=== PATIENT | male | born 1945 | race Caucasian/White ===

== ENCOUNTER → 2017-02-04 10:09 | Outpatient (CLI) | payer MEDICARE, OTHER | END | disposition home or self-care (01) | LOC: D.RT 10:00 | DX: J44.9 Chronic obstructive pulmonary disease, unspecified (principal) ==

== ENCOUNTER 2017-04-16 13:23 | Emergency (ER) | payer OTHER ==
[2017-04-16 14:38] LABS: ALBUMIN 3.7 g/dL (3.4-5.0); ALKALINE PHOSPHATASE 92 U/L (46-116); ALT (SGPT) 8 U/L (10-68); BILIRUBIN - TOTAL 0.32 mg/dL (0.2-1.3); CALC OSMOLALITY 279 mosm/kg (275-300); CALCIUM 8.7 mg/dL (8.5-10.1); CARBON DIOXIDE 30.7 mmol/L (21.0-32.0); CHLORIDE - SERUM 104 mmol/L (98-107); CREATININE - SERUM 1.1 mg/dL (0.6-1.3); GLUCOSE 94 mg/dL (74-106); POTASSIUM - SERUM 3.8 mmol/L (3.5-5.1); PROTEIN - SERUM 6.7 g/dL (6.4-8.2); SODIUM 140 mmol/L (136-145); UREA NITROGEN 15 mg/dL (7-18); eGFR NON AFRICAN AMERICAN 70 mL/min (90-120)
[2017-04-16 14:49] LABS: CHOL - HDL RATIO 3.1 ratio (2.3-4.9); CHOLESTEROL, TOTAL 147 mg/dL (0-200); CKMB 1.5 U/L (0.0-3.6); CREATINE KINASE 199 UL (21-232); HDL CHOLESTEROL 48 mg/dL (32-96); LDL CHOLESTEROL 77 mg/dL (0-100); LDL-HDL RATIO 1.6 ratio (1.5-3.5); TRIGLYCERIDE 111 mg/dL (30-200)
[2017-04-16 14:50] LABS: BASOPHILS 0.3 % (0-2); EOSINOPHILS 0.2 % (0-7); HEMATOCRIT 40.5 % (42.0-54.0); HEMOGLOBIN 13.8 g/dL (13.5-17.5); IMMATURE GRANULOCYTES 0.2 % (0-5); LYMPHOCYTES 41.4 % (15-50); MCH 32.2 pg (26.0-34.0); MCHC 34.1 g/dL (31.0-37.0); MCV 94.4 fL (80.0-100.0); MEAN PLATELET VOLUME 10.5 fL (7.4-10.4); MONOCYTES 13.4 % (2-11); NEUTROPHILS 44.5 % (40-80); PLATELET COUNT 176 10x3/uL (130-400); RBC 4.29 10x6/uL (4.20-6.10); RDW 13.8 % (11.5-14.5); WBC 6.4 10x3/uL (4.8-10.8)
[2017-04-16 14:57] LABS: TROPONIN-I < 0.017 ng/mL (0.000-0.060)
== END 2017-04-16 15:19 | disposition home or self-care (01) ==
LOC: D.ER 13:23
PROVIDERS: Emergency Medicine
DX: M25.512 Pain in left shoulder (principal); M54.2 Cervicalgia; I10 Essential (primary) hypertension; G20 Parkinson's disease; F17.200 Nicotine dependence, unspecified, uncomplicated

== ENCOUNTER 2017-06-10 15:47 | Inpatient (IN) | payer MEDICARE, OTHER ==
--- NOTE | ~2017-06-10 | HEMODYNAMI ---
PATIENT:NIKIA COVARRUBIAS MEDICAL RECORD: [id number] : 49 [facility] [id number] ADMISSION DATE: 06/10/17 Generatedon:06/11/201711:36 Patient name: NIKIA COVARRUBIAS Patient #: [id number] SSN: : 1945 Date of study: 06/11/2017 Page: Of Hemodynamic Procedure Report Patient Data Patient Demographics Procedure consent was obtained First Name: NIKIA Gender: Male Last Name: MARCI : 1945 [facility] Initial: JUAN RAMON Age: 71 year(s) Patient #: [id number] Race: Unknown Additional ID: [id number] Contact details Address: [address] [place] [address] State: [place] City: [facility] Zip code: [address] Admission Admission Data Admission Date: 06/10/2017 Admission Time: 17:54 Room #: D.2121 Procedure Procedure Types Cath Procedure Diagnostic Procedure LHC LHC w/Coronaries PCI Procedure Coronary Stent Coronary Stent Initial Miscellaneous Procedures Moderate Sedation up to 15 minutes Procedure Description Procedure Date Procedure Date: 06/11/2017 Procedure Start Time: 11:18 Procedure End Time: 11:33 Procedure Staff Name Function Eligio Mcdonald MD Performing Physician Helena Lr RT Monitor Marian Foster RT Scrub Krunal Martel RN Nurse Procedure Data Cath Procedure Fluoroscopy Diagnostic fluoroscopy Total fluoroscopy Time: 2.9 time: 2.9 min min Diagnostic fluoroscopy Total fluoroscopy dose: dose: 1026 mGy 1026 mGy Contrast Material Contrast Material Type Amount (ml) Isovue 300 95 Entry Location Entry Primary Successful Side Size Upsize Upsize Entry Closure Reid ccessful Closure Location (Fr) 1 (Fr) 2 (Fr) Remarks Device Remarks Radial Right 6 Fr Mechanical artery Short Compression Estimated blood loss: 10 ml Diagnostic catheters Device Type Used For End Catheter Placement DIAGNOSTIC Percy 110cm 5 Procedure Fr catheter ([id number]) Procedure Complications No complications Procedure Medications Medication Administration Route Dosage Oxygen NC 2 l/min Heparin Flush Bag added to field 2 bags (1000units/500ml NS) 0.9% NaCl I.V. 100 ml/hr Radial Cocktail added to field 1 syringe (Verapomil 2mg/Nitro 400mcg/Heparin 1500units) Fentanyl I.V. 50 mcg Versed I.V. 1 mg Radial Cocktail I.A. 1 syringe (Verapomil 2mg/Nitro 400mcg/Heparin 1500units) Heparin Bolus I.V. 4000 units Plavix P.O. 75 mg Hemodynamics Rest Heart Rate: 69 (bpm) Snapshots Pre Cath Intra NCS Post Cath Vital Signs Time Heart Resp SPO2 etCO2 NIBP (mmHg) Rhythm Pain Sedation Rate (ipm) (%) (mmHg) Status Level (bpm) 10:53:50 66 16 96 0 144/91(129) NSR 0 (11) 10(A) , No pain 10:58:02 60 16 96 0 147/90(124) NSR 0 (11) 10(A) , No pain 11:02:16 64 17 97 0 140/87(122) NSR 0 (11) 10(A) , No pain 11:06:24 61 16 97 0 130/82(112) NSR 0 (11) 10(A) , No pain 11:10:34 66 20 96 0 137/84(100) NSR 0 (11) 10(A) , No pain 11:14:47 61 16 97 0 124/79(94) NSR 0 (11) 10(A) , No pain 11:18:55 58 15 97 0 128/78(96) NSR 0 (11) 9(A) , No pain 11:22:59 73 15 90 0 115/77(86) NSR 0 (11) 9(A) , No pain 11:27:05 67 15 93 0 119/72(93) NSR 0 (11) 9(A) , No pain 11:31:40 62 16 94 0 143/91(110) NSR 0 (11) 9(A) , No pain Medications Time Medication Route Dose Verified Delivered Reason Note s Effectiveness by by 11:11:16 Oxygen NC 2 l/min Eligio Hector Per physician Tamara Martel RN 11:11:27 Heparin Flush added 2 bags Eligio Hector used for Bag to Tamara Martel senior vice president and chief information officer (1000units/500ml field NS) 11:11:36 0.9% NaCl I.V. 100 Eligio Hector Per physician ml/hr Tamara Martel RN 11:11:43 Radial Cocktail added 1 Eligio Hector used for (Verapomil to syringe Tamara Martel RN procedure 2mg/Nitro field 400mcg/Heparin 1500units) 11:13:56 Fentanyl I.V. 50 mcg Eligio Hector for sedation Tamara Martel RN 11:15:01 Versed I.V. 1 mg Eligio Hector for sedation Tamara Martel RN 11:19:29 Radial Cocktail I.A. 1 Eligio Eligio for (Verapomil syringe Tamara Mcdonald MD vasodilation 2mg/Nitro 400mcg/Heparin 1500units) 11:25:05 Heparin Bolus I.V. 4000 Eligio Hector for units Tamara Martel RN anticoagulation 11:33:09 Plavix P.O. 75 mg Eligio Hector for Tamara Martel RN antiplatelet therapy Procedure Log Time Note 10:33:10 Helena LAWRENCE(R) sent for patient. Start room use. 10:33:11 Time tracking: Regular hours 10:33:15 Plan of Care:Hemodynamics will remain stable., Cardiac rhythm will remain stable., Comfort level will be maintained., Respiratory function will remain adequate., Patient/ family verbilizes understanding of procedure., Procedure tolerated without complication., Recovers from procedure without complications.. 10:52:39 Patient received from Med II to [facility] 2 Alert and oriented. Tansferred to table in Supine position. 10:52:40 Warm blankets applied, and jojo hugger turned on for patient comfort. 10:52:41 Correct patient and procedure confirmed by team. 10:52:42 Signed procedure consent form obtained from patient. 10:52:43 ECG and BP/O2 sat monitors applied to patient. 10:52:44 Vital chart was started 10:52:45 Baseline sample Acquired. 10:52:48 Rhythm: sinus rhythm 10:52:50 Full Disclosure recording started 10:52:53 H&P Date Dictated: 06/11/2017 New H&P dictated by physician.. 10:52:55 Pre-procedure instructions explained to patient. 10:52:55 Pre-op teaching completed and patient verbalized understanding. 10:52:57 Family in waiting room. 10:52:58 Patient NPO since Midnight. 10:53:00 Is the patient allergic to Iodine/contrast media? No. 10:53:01 Was the patient premedicated? No 10:53:02 Is patient on blood thinner?No 10:53:07 Patient diabetic? No. 10:53:10 Previous problem with sedation/anesthesia? No ? 10:53:12 Snore? Yes 10:53:13 Sleep apnea? No 10:53:16 Deviated septum? No 10:53:17 Opens mouth fully? Yes 10:53:17 Sticks out tongue? Yes 10:53:24 Airway obstruction? Yes emphysema 10:53:35 Dentures? Yes Partials; in tight 10:53:38 Pre procedure: right dorsailis pedis pulse 1+ Palpable, but thready & weak; easily obliterated 10:53:40 Pre procedure: left dorsailis pedis pulse 1+ Palpable, but thready & weak; easily obliterated 10:53:42 Patient pain scale 0/10 ?. 10:53:48 IV patent on arrival in left forearm with 0.9% NaCl at [facility]. 10:53:51 Lab results completed and on chart. 10:53:54 Right Radial & Right Groin area was prepped with chlora-prep and draped in sterile fashion 10:53:55 Alarms reviewed by R. N. 10:53:55 Sharps counted by scrub and verified by R.N. 11:03:28 Physician paged 11:03:41 Use device set Radial Dx or PCI 11:03:43 ACIST Syringe (88458) opened to sterile field. 11:03:43 Medline Cath Pack ([id number]) opened to sterile field. 11:03:44 Bag Decanter (2001S) opened to sterile field. 11:03:44 SHEATH 6FR Slender ([id number]) opened to sterile field. 11:03:45 DIAGNOSTIC WIRE .035 260cm J wire (478900) opened to sterile field. 11:03:45 ACIST Hand Control (78377) opened to sterile field. 11:03:46 ACIST Manifold (40249) opened to sterile field. 11:03:46 Tegaderm 4 x 4 (1626W) opened to sterile field. 11:03:47 MBrace Wrist Support ([id number]) opened to sterile field. 11:06:03 Zero performed for pressure channel P1 11:07:04 Is patient on blood thinner?Yes 11:07:07 ACC The patient was administered the following blood thiners within the last 24 hours: ACCPlavix 11:11:16 Oxygen 2 l/min NC was administered by Krunal Martel RN; Per physician; 11:11:27 Heparin Flush Bag (1000units/500ml NS) 2 bags added to field was administered by Krunal Martel RN; used for procedure; 11:11:36 0.9% NaCl 100 ml/hr I.V. was administered by Krunal Martel RN; Per physician; 11:11:43 Radial Cocktail (Verapomil 2mg/Nitro 400mcg/Heparin 1500units) 1 syringe added to field was administered by Krunal Martel RN; used for procedure; 11:12:51 Physician arrived 11:13:51 --------ALL STOP TIME OUT------ 11:13:52 Final Timeout: patient, procedure, and site verified with staff and physician. All members of the team are in agreement. 11:13:56 Fentanyl 50 mcg I.V. was administered by Krunal Martel RN; for sedation; 11:15:01 Versed 1 mg I.V. was administered by Krunal Martel RN; for sedation; 11:17:54 Right Radial & Right Groin site verified by team. 11:17:58 Physical assessment completed. ASA score P 2 - A patient with mild systemic disease as per Eligio Mcdonald MD. 11:18:02 Sedation plan: IV Moderate Sedation Medication:Versed, Fentanyl 11:18:09 Procedure started. 11:18:58 Local anesthetic to right radial artery with Lidocaine 2% by Eligio Mcdonald MD.INITIAL ACCESS ONLY 11:19:08 A 6 Fr Short sheath was inserted into the Right Radial artery 11:19:29 Radial Cocktail (Verapomil 2mg/Nitro 400mcg/Heparin 1500units) 1 syringe I.A. was administered by Eligio Mcdonald MD; for vasodilation; 11:19:32 A DIAGNOSTIC Percy 110cm 5 Fr catheter (639123) was advanced over the wire and used for Procedure. 11:19:40 LV angiography performed. 11:20:03 EF : 60 % 11:20:50 RCA angiography performed. 11:21:21 Catheter removed. 11:22:59 GUIDE 6FR XBLAD 3.5 SH catheter ([id number]) opened to sterile field. 11:23:16 CHOICE PT Floppy Straight 300cm guide wire ([id number]) opened to sterile field. 11:23:17 INFLATOR Merit BasixCompak (KW2229) opened to sterile field. 11:25:05 Heparin Bolus 4000 units I.V. was administered by Krunal Martel RN; for anticoagulation; 11:26:11 6 Fr blad3.5 guide catheter was inserted over the wire 11::18 Whisper wire advanced. 11::19 Wire advanced across lesion. 11:27:35 Inflation Number: 1 A PROMUS Premier 3.0 x 38 stent ([id number]) was prepped and advanced across the Mid CX. The stent was deployed at 13 LILIAN for 0:10 (min:sec). 11:29:13 Wire removed. 11:29:14 Guide catheter removed. 11:29:30 Sheath removed intact; hemostasis achieved with Mechanical Compression to the Right Radial artery. 11:29:32 Procedure ended.(Physican Out) 11:30:54 Fluoroscopy time 02.90 minutes. 11:30:58 Fluoroscopy dose: 1026 mGy 11:30:58 Flurop Dose total: 1026 11:31:01 Contrast amount:Isovue 300 95ml. 11:31:03 Sharps counted by scrub and verified by R.N. 11:31:05 TR band inflated with 10cc of air. 11:31:07 Insertion/operative site no bleeding no hematoma. 11:31:08 Post Procedure Pulses reassessed and unchanged 11:31:13 Post-procedure physical assessment completed. ASA score P 2 - A patient with mild systemic disease as per Eligio Mcdonald MD. 11:31:17 Post procedure rhythm: sinus rhythm 11:31:20 Estimated blood loss: 10 ml 11:31:21 Post procedure instruction explained to patient.Patient verbalizes understanding. 11:31:46 Procedure type changed to Cath procedure, Diagnostic procedure, LHC, LHC w/Coronaries, PCI procedure, Coronary Stent, Coronary Stent Initial, Miscellaneous Procedures, Moderate Sedation up to 15 minutes 11:33:06 Procedure and supply charges have been captured, reviewed, submitted and are correct. 11:33:09 Plavix 75 mg P.O. was administered by Krunal Martel RN; for antiplatelet therapy; 11:33:32 Procedure Complication : No complications 11:33:34 Vital chart was stopped 11:33:36 See physician's report for complete and final results. 11:33:39 Report given to [facility]. 11:33:42 Patient transfered to [facility] with Stretcher. 11:33:44 Procedure ended. 11:33:44 Full Disclosure recording stopped 11:33:47 End room use (Document Last) Intervention Summary Intervention Notes Time ActionType Lesion and Equipment Action# Pressure Duration Attributes Used 11:27:35 Place stent Mid CX PROMUS 1 13 00:10 Premier 3.0 x 38 stent ([id number]) Device Usage Item Name Manufacture Quantity Catalog Number Hospital Part Current Min imal Lot# / Charge Number Stock Stock Serial# Code ACIST Acist 1 18068 235977 881818 865483 20 Syringe Medical (04975) Systems Inc Medline Cath Cardinal 1 [id number] 500092 25478 227575 5 Lenco Mobile ([id number]) Bag Decanter Microtek 1 2001S 556968 98648 705926 5 (2001S) Medical Inc. SHEATH 6FR Terumo 1 [id number] 075127 375480 484712 40 Slender ([id number]) DIAGNOSTIC [facility] 1 054343 258126 405951 884862 30 WIRE .035 260cm J wire (739640) ACIST Hand Acist 1 86879 890726 705287 116884 5 Control Medical (93224) Systems Inc ACIST Acist 1 63945 150808 322632 424891 5 Manifold Medical (58250) Systems Inc Tegaderm 4 x 3M 1 1626W 741292 770487 293062 5 4 (1626W) MBrace Wrist Advanced 1 140-0250-00 491009 67227 248321 5 Support Vascular ([id number]) Dynamics DIAGNOSTIC Terumo 1 40-9673 470325 807261 305873 5 Percy 110cm 5 Fr catheter (501516) GUIDE 6FR Cardinal 1 [id number] 423978 489099 317747 3 XBLAD 3.5 Health catheter ([id number]) CHOICE PT Eagle 1 [id number] 598430 300637 773421 5 Xtone Straight 300cm guide wire (03288232) INFLATOR Merit 1 SY3896 149901 287246 224622 15 [place] [employer] Medical BasixCompak (EI9319) PROMUS Eagle 1 [id number] 941160 117384 5 [id number] Premier 3.0 Scientific x 38 stent ([id number]) Signature Audit Remington Stage Time Signature Unsigned Intra-Procedure 06/11/2017 Helena Lr 11:35:58 AM RT(R) Signatures Monitor : Helena Lr Signature : RT Date : Time : [address] [place] [address]
--- NOTE | ~2017-06-10 | OP ---
PATIENT NAME: NIKIA COVARRUBIAS MEDICAL RECORD: [id number] :49 LOCATION:D.M2 D.2121 ADMISSION DATE:06/11/17 SURGEON: REGGIE HE MD DATE OF OPERATION: 06/12/2017 PROCEDURES: 1. PTCA and stent of RCA. 2. Intravascular ultrasound. 3. Selective coronary angiography. INDICATION: Angina and coronary artery disease. PROCEDURE IN DETAIL: After informed consent was obtained and after detailed explanation of risks, benefits as well as alternative therapies, the patient elected to proceed with angiogram and angioplasty. The right femoral area was prepped and draped in normal sterile fashion. The right femoral artery was cannulated via modified Seldinger technique with placement of 6-Angolan sheath. All catheters exchanged through this sheath. FINDINGS: The right coronary has a long area of 80% stenosis confirmed by intravascular ultrasound in the mid vessel. This was addressed with a 2.75 x 38 mm [place] stent taken to 17 atmospheres. Result was 0% residual stenosis. OVERALL IMPRESSION: Successful PTCA and stent of the RCA going from a long area of 80% initial stenosis to 0% residual stenosis. TRANSINT:[id number] Voice Confirmation ID: [id number] DOCUMENT ID: [id number] REGGIE HE MD at 1153 CC: [id number] DICTATION DATE: 06/12/17 1448 CHIEF COMMERCIAL OFFICER: 06/12/17 1601 DIS IN 06/12/17 [facility] [address] [id number]
--- NOTE | ~2017-06-10 | HP ---
PATIENT: NIKIA HENDRIX MEDICAL RECORD: [id number] ACCOUNT: [id number] LOCATION:[facility].2121 : 49 ADMISSION DATE: 06/11/17 HISTORY AND PHYSICAL EXAMINATION DIAGNOSES: 1. Non-Q-wave myocardial infarction. 2. Coronary artery disease. 3. Previous PTCA and stent. 4. Parkinson's. 5. Hyperlipidemia. 6. Hypertension. HISTORY OF PRESENT ILLNESS: Mr. Hendrix presents with anginal symptomatology. He is followed at the [facility]. He has a history of 5 stents, last being approximately 5 years ago. He has been having chest pain on and off for the past 2 weeks; however, he had prolonged episode of chest pain last night, unrelenting. Hence, he was not transferred to the [facility] because of continued chest pain, he continues to have chest tightness. This morning, his troponin is elevated. EKG is with no acute changes. PHYSICAL EXAMINATION: GENERAL APPEARANCE: Well-nourished, well-developed, appears stated age. Level of distress, comfortable. PSYCHIATRIC: Mental status, alert, normal affect. Orientation, oriented to time, place and person. EYES: Lids and conjunctiva, noninjected. No discharge, no pallor. ENT: Lips, teeth, gums, normal dentition. Oropharynx, no cyanosis, no pallor. NECK: Carotid arteries, bilateral normal upstroke, no bruits, no thrills. JUGULAR VEINS: No jugular venous pressure or distention. CERVICAL LYMPH NODES: Nontender, nonenlarged. THYROID: Not enlarged. Nontender. No nodules. LUNGS: Respiratory effort, unlabored. CHEST: Normal curvature. No thoracic deformity. No chest wall tenderness. Percussion, resonant. Auscultation, clear. No wheezes, no rales, no rhonchi. CARDIOVASCULAR: Precordial exam, nondisplaced. No heaves or pericardial thrills. Rate and rhythm, regular. Heart sounds, normal S1, normal S2. No S3, no gallop, no rub. Systolic murmur, not heard. Diastolic murmur, not heard. EXTREMITIES: No cyanosis, no edema. Peripheral pulses, full and equal in all extremities, except as noted. No bruits appreciated. ABDOMEN: Soft, nondistended. Normal aorta. No bruit. Nontender. No masses. Liver, nontender, no hepatomegaly. Spleen, nontender, no splenomegaly. MUSCULOSKELETAL: No joint tenderness. No joint swelling. No erythema. NEUROLOGICAL: Normal gait, normal strength, normal tone. SKIN: Warm and dry. OVERALL IMPRESSION: Non-Q-wave myocardial infarction with continued chest pain. We will proceed with coronary angiography. Further care depends on findings of the angiography. TRANSINT:[id number] Voice Confirmation ID: [id number] DOCUMENT ID: [id number] HISTORY AND PHYSICAL [id number] NIKIA HENDRIX JEFFREY MD at 1153 CC: [id number] DICTATION DATE: 06/11/17 0752 CRANE HELPER: 06/11/17 0919 DIS IN 06/12/17 [id number] [place] [address]
--- NOTE | ~2017-06-10 | HEMODYNAMI ---
PATIENT:NIKIA COVARRUBIAS MEDICAL RECORD: [id number] : 49 LOCATION:[facility].2121 ADMISSION DATE: 06/11/17 Generatedon:06/12/201714:49 Patient name: NIKIA COVARRUBIAS Patient #: [id number] SSN: : 1945 Date of study: 06/12/2017 Page: Of Hemodynamic Procedure Report Patient Data Patient Demographics Procedure consent was obtained First Name: NIKIA Gender: Male Last Name: MARCI : 1945 Middle Initial: JUAN RAMON Age: 71 year(s) Patient #: [id number] Race: Unknown Additional ID: [id number] Contact details Address: [address] [place] [address] State: [place] City: [facility] [place] Zip code: [address] Admission Admission Data Admission Date: 06/11/2017 Admission Time: 16:18 Room #: .2121 Procedure Procedure Types Cath Procedure Diagnostic Procedure FFR/IVUS Intra-Coronary IVUS Initial PCI Procedure Coronary Stent Coronary Stent Initial Procedure Description Procedure Date Procedure Date: 06/12/2017 Procedure Start Time: 14:35 Procedure End Time: 14:49 Procedure Staff Name Function Eligio Mcdonald MD Performing Physician Helena Lr RT Monitor Shayna Garcia RN Nurse Adelaide Marte RT Scrub Procedure Data Cath Procedure Fluoroscopy Diagnostic fluoroscopy Total fluoroscopy Time: 3.4 time: 3.4 min min Diagnostic fluoroscopy Total fluoroscopy dose: 286 dose: 286 mGy mGy Contrast Material Contrast Material Type Amount (ml) Isovue 300 43 Entry Location Entry Primary Successful Side Size Upsize Upsize Entry Closure Succes sful Closure Location (Fr) 1 (Fr) 2 (Fr) Remarks Device Remarks Femoral Right 6 Fr Exoseal artery Short Estimated blood loss: 10 ml Procedure Complications No complications Procedure Medications Medication Administration Route Dosage Oxygen NC 2 l/min Lidocaine 2% added to field 20 Heparin Flush Bag added to field 2 bags (1000units/500ml NS) 0.9% NaCl I.V. 100 ml/hr Versed I.V. 1 mg Fentanyl I.V. 50 mcg Heparin Bolus I.V. 4000 units Versed I.V. 0.5 mg Fentanyl I.V. 25 mcg Hemodynamics Rest Heart Rate: 65 (bpm) Snapshots Pre Cath Intra NCS Post Cath Vital Signs Time Heart Resp SPO2 etCO2 NIBP (mmHg) Rhythm Pain Sedation Rate (ipm) (%) (mmHg) Status Level (bpm) 14:30:30 65 14 98 3.7 124/87(99) NSR 0 (11) 10(A) , No pain 14:34:36 64 16 98 2.9 123/81(99) NSR 0 (11) 10(A) , No pain 14:38:39 71 15 98 1.4 135/85(106) NSR 0 (11) 9(A) , No pain 14:42:45 74 15 98 2.2 143/93(125) NSR 0 (11) 9(A) , No pain 14:46:55 77 15 98 5.9 144/93(107) NSR 0 (11) 10(A) , No pain Medications Time Medication Route Dose Verified Delivered Reason Notes Effectiveness by by 14:29:06 Oxygen NC 2 Eligio Corral used for l/min Tamara Garcia RN procedure 14:29:11 Lidocaine 2% added 20ml Eligio Del Valle for local to vial Tamara Mcdonald MD anesthetic field 14:29:17 Heparin Flush added 2 Eligio Bettencourtrey used for Bag to bags Tamara Mcdonald MD procedure (1000units/500ml field NS) 14:29:29 0.9% NaCl I.V. 100 Eligio Booneie used for ml/hr Tamara Garcia RN procedure 14:31:38 Versed I.V. 1 mg Eligio Corral for sedation Tamara Garcia RN 14:31:44 Fentanyl I.V. 50 Eligio Corral for sedation mcg Tamara Garcia RN 14:37:53 Heparin Bolus I.V. 4000 Eligio Corral for units Tamara Garcia RN anticoagulation 14:40:50 Versed I.V. 0.5 Eligio Corral for sedation mg Tamara Garcia RN 14:40:55 Fentanyl I.V. 25 Eligio Corral for sedation mcg Tamara Garcia RN Procedure Log Time Note 13:53:43 Shayna Garcia RN sent for patient. Start room use. 14:04:48 Time tracking: Regular hours 14:04:51 Plan of Care:Hemodynamics will remain stable., Cardiac rhythm will remain stable., Comfort level will be maintained., Respiratory function will remain adequate., Patient/ family verbilizes understanding of procedure., Procedure tolerated without complication., Recovers from procedure without complications.. 14:08:51 Patient received from Med II to CCL 2 Alert and oriented. Tansferred to table in Supine position. 14:08:52 Warm blankets applied, and jojo hugger turned on for patient comfort. 14:08:53 Correct patient and procedure confirmed by team. 14:08:56 Signed procedure consent form obtained from patient. 14:09:05 H&P Date Dictated: 06/11/2017 Within 30 days and on chart., H&P Addendum completed by physician on day of procedure. (MUST COMPLETE FOR ALL OUTPATIENTS). 14:09:07 Pre-procedure instructions explained to patient. 14:09:10 Family in waiting room. 14:09:13 Patient NPO since Midnight. 14:10:02 Was the patient premedicated? Yes 14:10:04 Is patient on blood thinner?Yes 14:10:08 ACC The patient was administered the following blood thiners within the last 24 hours: ACCPlavix 14:23:29 Patient diabetic? No. 14:23:35 Previous problem with sedation/anesthesia? No ? 14:23:37 Snore? Yes 14:23:38 Sleep apnea? No 14:23:38 Deviated septum? No 14:23:39 Opens mouth fully? Yes 14:23:40 Sticks out tongue? Yes 14:23:41 Airway obstruction? Yes Emphysema 14:24:14 Dentures? Yes In 14:24:19 Pre procedure: right dorsailis pedis pulse 2+ Normal; easily identifiable; not easily obliterated 14:24:22 Patient pain scale 0/10 ?. 14:24:29 IV patent on arrival in left forearm with 0.9% NaCl at [facility]. 14:24:32 Lab results completed and on chart. 14:24:36 Right groin area was prepped with chlora-prep and draped in sterile fashion 14:24:36 Alarms reviewed by R. N. 14:24:37 Sharps counted by scrub and verified by R.N. 14:24:42 Use device set TAUTH PCI 14:24:44 INFLATOR Merit BasixCompak ([id number]) opened to sterile field. 14:24:45 SHEATH 6FR [place] ([id number]) opened to sterile field. 14:24:48 Use device set CATH PACK 14:24:50 Bag Decanter (2002S) opened to sterile field. 14:24:52 ACIST Manifold (80403) opened to sterile field. 14:24:52 Medline Cath Pack ([id number]) opened to sterile field. 14:24:53 ACIST Hand Control (32782) opened to sterile field. 14:24:53 DIAGNOSTIC WIRE .035 260cm J wire (273737) opened to sterile field. 14:24:54 ACIST Syringe (55134) opened to sterile field. 14:24:58 CHOICE PT Extra Support 182cm wire ([id number]) opened to sterile field. 14:25:16 PERCUTANEOUS ENTRY 19GA needle opened to sterile field. 14:29:06 Oxygen 2 l/min NC was administered by Shanya Garcia RN; used for procedure; 14:29:11 Lidocaine 2% 20ml vial added to field was administered by Eligio Mcdonald MD; for local anesthetic; 14:29:17 Heparin Flush Bag (1000units/500ml NS) 2 bags added to field was administered by Eligio Mcdonald MD; used for procedure; 14:29:29 0.9% NaCl 100 ml/hr I.V. was administered by Shayna Garcia RN; used for procedure; 14:29:31 Vital chart was started 14:30:12 Baseline sample Acquired. 14:30:27 Final Timeout: patient, procedure, and site verified with staff and physician. All members of the team are in agreement. 14:30:29 Right groin site verified by team. 14:30:31 Physical assessment completed. ASA score P 2 - A patient with mild systemic disease as per Eligio Mcdonald MD. 14:30:34 Sedation plan: IV Moderate Sedation Medication:Versed, Fentanyl 14:31:38 Versed 1 mg I.V. was administered by Shayna Garcia RN; for sedation; ::44 Fentanyl 50 mcg I.V. was administered by Shayna Garcia RN; for sedation; 14:33:04 Zero performed for pressure channel P1 14:34:40 GUIDE 6FR AR 2.0 SH catheter ([id number]) opened to sterile field. 14:34:52 Procedure started. 14:34:52 Full Disclosure recording started 14:35:57 Local anesthetic to right femoral artery with Lidocaine 2% by Eligio Mcdonald MD.INITIAL ACCESS ONLY 14:36:49 A 6 Fr Short sheath was inserted into the Right Femoral artery 14:36:59 6 Fr AR 2.0 SH guide catheter was inserted over the wire 14:37:53 Heparin Bolus 4000 units I.V. was administered by Shayna Garcia RN; for anticoagulation; 14:38:23 [place] Eagleye IVUS Catheter ([id number]) opened to sterile field. 14:38:41 Choice PT ES wire advanced. 14:40:50 Versed 0.5 mg I.V. was administered by Shayna Garcia RN; for sedation; 14:40:55 Fentanyl 25 mcg I.V. was administered by Shayna Garcia RN; for sedation; 14:41:57 IVUS catheter advanced over wire. 14:41:59 IVUS pass to RCA lesion performed. 14:42:01 IVUS catheter removed over wire. 14:42:11 Inflation Number: 1 A NORMA RX 2.75 x 38 stent ([id number]) was prepped and advanced across the Prox RCA. The stent was deployed at 15 LILIAN for 0:03 (min:sec). 14:42:58 Stent catheter was removed intact over wire. 14:42:59 Wire removed. 14:42:59 Guide catheter removed. 14:43:09 Sheath removed intact; hemostasis achieved with Exoseal to the Right Femoral artery. 14:43:11 Procedure ended.(Physican Out) 14:44:34 Fluoroscopy time 03.40 minutes. 14:44:39 Flurop Dose total: 286 14:44:39 Fluoroscopy dose: 286 mGy 14:44:42 Contrast amount:Isovue 300 43ml. 14:44:43 Sharps counted by scrub and verified by R.N. 14:44:45 Insertion/operative site no bleeding no hematoma. 14:44:54 Post-op/insertion site Right Femoral artery dressed using a 4 x 4 and Tegaderm. 14:44:58 Post right femoral artery:stable, clean and dry 14:45:40 Post Procedure Pulses reassessed and unchanged 14:45:43 Post-procedure physical assessment completed. ASA score P 2 - A patient with mild systemic disease as per Eligio Mcdonald MD. 14:45:45 Post procedure rhythm: unchanged. 14:45:47 Estimated blood loss: 10 ml 14:45:48 Post procedure instruction explained to patient.Patient verbalizes understanding. 14:45:48 Patient needs reinforcement of post procedure teaching. 14:46:04 Procedure type changed to Cath procedure, Diagnostic procedure, FFR/IVUS, Intra-Coronary IVUS Initial, PCI procedure, Coronary Stent, Coronary Stent Initial 14:46:10 Procedure Complication : No complications 14:46:12 See physician's report for complete and final results. 14:46:26 EXOSEAL 6Fr (EX600) opened to sterile field. 14:46:37 Tegaderm 4 x 4 (1626W) opened to sterile field. 14:47:24 Procedure and supply charges have been captured, reviewed, submitted and are correct. 14:49:18 Vital chart was stopped 14:49:21 Report given to PCU. 14:49:25 Patient transfered to PCU with Bed. 14:49:31 End room use (Document Last) 14:49:34 Procedure ended. 14:49:34 Full Disclosure recording stopped Intervention Summary Intervention Notes Time ActionType Lesion and Equipment Used Action# Pressure Duration Attributes 14:42:[address] stent Prox RCA NORMA RX 2.75 x 1 15 00:03 38 stent ([id number]) Device Usage Item Name Manufacture Quantity Catalog Number Hospital Part Current M inimal Lot# / Charge Number Stock Stock Serial# Code INFLATOR Merit Merit 1 [id number] 784643 473878 1 5 [place] Wind (RA4989) SHEATH 6FR Terumo 1 [id number] 499280 082190 857722 4 0 [place] (NYV183) Bag Decanter Microtek 1 [id number] 52939 163633 5 () Medical Inc. ACIST Manifold Acist 1 57198 980211 696503 720154 5 (15013) Medical Systems Inc Medline Cath Cardinal 1 [id number] 463155 69562 606447 5 Pack Health ([id number]) ACIST Hand Acist 1 56403 005860 166071 335365 5 Control Medical (84352) Systems Inc DIAGNOSTIC [place] 1 325685 985178 845437 224269 3 0 WIRE .035 260cm J wire (699832) ACIST Syringe Acist 1 02636 485976 856027 578324 2 0 (14337) Medical Systems Inc CHOICE PT [place] 1 [id number] 019007 276672 722511 5 Extra Support Scientific 182cm wire ([id number]) PERCUTANEOUS Cook Medical 1 M96551 031104 669333 5 ENTRY 19GA needle GUIDE 6FR AR Medtronic 1 [id number] 470365 90771 047491 1 2.0 SH catheter ([id number]) Stat[place] Stateline 1 96949W 115606 534292 756241 8 [place] IVUS Catheter (01674M) NORMA RX 2.75 x Medtronic 1 [id number] 027228 8917555 100806 5 [id number] 38 stent ([id number]) EXOSEAL 6Fr Cardinal 1 EX600 014295 644204 699245 1 0 (EX600) Health Tegaderm 4 x 4 3M 1 1626W 677516 693657 136846 5 (1626W) Signature Audit [place] Stage Time Signature Unsigned Intra-Procedure 06/12/2017 Adelaide 2:49:47 PM Counts RT(R) Signatures Monitor : Helena Lr Signature : RT Date : Time : [address] [address]
--- NOTE | ~2017-06-10 | EC ---
PATIENT:NIKIA COVARRUBIAS DATE OF SERVICE: 06/10/17 SEX: M MEDICAL RECORD: [id number] DATE OF : [birth year] LOCATION:D.M2 D.212 AGE OF PATIENT: 71 ADMISSION DATE: 06/11/17 REFERRING PHYSICIAN: INTERPRETING PHYSICIAN: REGGIE MCDONALD MD ECHOCARDIOGRAM REPORT ECHO CHARGES 4 ECHO COMPLETE CLINICAL DIAGNOSIS: NH/POST STENT/CAD ECHOCARDIOGRAPHIC MEASUREMENTS (adult normal given) AC root (d.<3.7cm) 2.7 cm LV Septum d (<1.2 cm> 1.5 cm Valve Excursion 1.8 cm LV Septum (systole) 1.6 cm Left Atria (s.<4.0cm> 3.3 cm LVPW d(<1.2cm) 1.5 cm RV (d.<2.3cm) 3.7 cm LVPW (sytole) 1.6 cm LV diastole(<5.6CM) 4.6 cm MV E-F(>70mm/sec) cm LV systole 2.9 cm LVOT Diameter 1.9 cm MV exc.(>10mm) cm Est.ejection fraction (50-75%) % Pericardial Effusion N DOPPLER: LVIT cm/sec A 72.0 cm/sec E 80.0 cm/sec LA cm/sec RVSP 31 mmHg LVOT 80 cm/sec AOP1/2T m/s Asc. Ao 249 cm/sec RVOT cm/sec RA cm/sec PA cm/sec AV Gradient Peak 5.65 mmHg AV Mean 2.81 mmHg AV Area 1.8 cm MV Gradient Peak 2.59 mmHg MV Mean 1.18 mmHg MV Area cm COMMENTS: Collator Operator: Blanca RICO Change Room Attendant: 1 Dr. Mcdonald TAPE# PACS DATE OF SERVICE: 06/11/2017 Echocardiogram FINDINGS: 1. Left ventricular chamber size is within normal limits. Left ventricular systolic function is normal. Overall ejection fraction estimated at 50%. 2. Left atrium is within normal limits at 3.3 cm. Right atrium and right ventricular chamber sizes are mildly dilated. 3. Valvular structures have normal structure and motion. ECHOCARDIOGRAM REPORT [id number] NIKIA COVARRUBIAS 4. Doppler interrogation only reveals mild tricuspid regurgitation. No other valvular insufficiency or stenosis. 5. No evidence of pericardial effusion or left ventricular thrombus. TRANSINT:[id number] Voice Confirmation ID: [id number] DOCUMENT ID: [id number] REGGIE MCDONALD MD at 1153 CC: [id number] DICTATION DATE: 06/11/17 1343 WATERSIDE WORKER: 06/11/17 1425 DIS IN 06/12/17 [place] [id number] [place] [id number]
--- NOTE | ~2017-06-10 | DS ---
PATIENT:NIKIA HENDRIX :49 MEDICAL RECORD: [id number] DISCHARGE SUMMARY ADMISSION DATE: 06/11/17 DISCHARGE DATE: 06/12/17 DATE OF SERVICE: 06/12/2017 DIAGNOSES: 1. Unstable angina. 2. Coronary artery disease. 3. Hypertension. 4. Hyperlipidemia. HOSPITAL COURSE: Mr. Hendrix presents with unstable anginal symptomatology, found to have significant disease of the left circumflex and RCA, underwent successful PTCA stent of above territories. Discharged home with the addition of aspirin and Plavix to his medical regimen. He will follow up with [facility] in 1 month. TRANSINT:[id number] Voice Confirmation ID: [id number] DOCUMENT ID: [id number] REGGIE HE MD at 1153 CC: [id number] DICTATION DATE: 06/12/17 1449 TORCH HEATER: 06/13/17 1026 DIS IN 06/12/17 [place] [id number] [place] [address]
[2017-06-10 16:26] LABS: BASOPHILS 0.3 % (0-2); EOSINOPHILS 0.1 % (0-7); HEMATOCRIT 41.2 % (42.0-54.0); HEMOGLOBIN 14.1 g/dL (13.5-17.5); IMMATURE GRANULOCYTES 0.3 % (0-5); LYMPHOCYTES 36.6 % (15-50); MCH 32.3 pg (26.0-34.0); MCHC 34.2 g/dL (31.0-37.0); MCV 94.3 fL (80.0-100.0); MEAN PLATELET VOLUME 10.5 fL (7.4-10.4); MONOCYTES 13.9 % (2-11); NEUTROPHILS 48.8 % (40-80); PLATELET COUNT 203 10x3/uL (130-400); RBC 4.37 10x6/uL (4.20-6.10); RDW 13.5 % (11.5-14.5); WBC 7.2 10x3/uL (4.8-10.8)
[2017-06-10 16:39] LABS: ALBUMIN 3.4 g/dL (3.4-5.0); ALKALINE PHOSPHATASE 124 U/L (46-116); ALT (SGPT) 27 U/L (10-68); BILIRUBIN - TOTAL 0.55 mg/dL (0.2-1.3); CALC OSMOLALITY 282 mosm/kg (275-300); CARBON DIOXIDE 26.7 mmol/L (21.0-32.0); CHLORIDE - SERUM 104 mmol/L (98-107); CREATININE - SERUM 1.1 mg/dL (0.6-1.3); GLUCOSE 91 mg/dL (74-106); PROTEIN - SERUM 7.6 g/dL (6.4-8.2); SODIUM 140 mmol/L (136-145); UREA NITROGEN 23 mg/dL (7-18); eGFR NON AFRICAN AMERICAN 70 mL/min (90-120)
[2017-06-10 16:56] LABS: CHOL - HDL RATIO 3.6 ratio (2.3-4.9); CHOLESTEROL, TOTAL 157 mg/dL (0-200); CREATINE KINASE 219 UL (21-232); HDL CHOLESTEROL 44 mg/dL (32-96); LDL CHOLESTEROL 89 mg/dL (0-100); TRIGLYCERIDE 122 mg/dL (30-200)
[2017-06-10 17:05] LABS: TROPONIN-I 0.236 ng/mL (0.000-0.060)
[2017-06-10 17:24] LABS: CKMB 2.3 U/L (0.0-3.6)
[2017-06-10 19:04] LABS: CREATINE KINASE 234 UL (21-232)
[2017-06-10 19:15] LABS: TROPONIN-I 2.614 ng/mL (0.000-0.060)
[2017-06-10 19:16] LABS: CKMB 5.9 U/L (0.0-3.6)
[2017-06-10 20:00] VITALS: BP 110/71
[2017-06-11 00:20] LABS: CKMB 6.9 U/L (0.0-3.6); CREATINE KINASE 217 UL (21-232)
[2017-06-11 00:22] LABS: TROPONIN-I 3.094 ng/mL (0.000-0.060)
[2017-06-11 03:49] VITALS: BP 110/71; BMI 27.2
[2017-06-11 04:00] VITALS: BP 113/70
[2017-06-11] MEDS ORDERED: LISINOPRIL2.5 MG PO (04:18)
[2017-06-11] MEDS ORDERED: COREG6.25 MG PO (04:19)
[2017-06-11] MEDS ORDERED: BAYER CHEWABLE81 MG PO (04:19)
[2017-06-11] MEDS ORDERED: NORVASC2.5 MG PO (04:20)
[2017-06-11] MEDS ORDERED: LIPITOR80 MG PO (04:20)
[2017-06-11] MEDS ORDERED: SINEMET 25-1001 EACH PO (04:21)
[2017-06-11 06:38] LABS: CKMB 4.9 U/L (0.0-3.6); CREATINE KINASE 192 UL (21-232)
[2017-06-11 06:39] LABS: TROPONIN-I 2.498 ng/mL (0.000-0.060)
[2017-06-11 08:06] VITALS: BP 113/70
[2017-06-11 11:14] VITALS: BP 108/60
[2017-06-11 12:34] VITALS: BMI 27.1
[2017-06-11 14:56] VITALS: BP 125/75
[2017-06-11] MEDS ORDERED: ARICEPT23 MG PO (15:58)
[2017-06-11] MEDS ORDERED: MELATONIN 3 MG1 TAB PO (15:59)
[2017-06-11] MEDS ORDERED: EFFEXOR XR150 MG PO (15:59)
[2017-06-11] MEDS ORDERED: VITAMIN B-12100 MCG PO (16:00)
[2017-06-11] MEDS ORDERED: FLOMAX0.4 MG PO (16:00)
[2017-06-11] MEDS ORDERED: OMEPRAZOLE20 M1 PO (16:01)
[2017-06-11 20:00] VITALS: BP 143/88
[2017-06-12] VITALS: BP 140/78
[2017-06-12 04:00] VITALS: BP 121/71
[2017-06-12 08:04] VITALS: BP 121/87
[2017-06-12 11:04] VITALS: BP 123/85
[2017-06-12 14:39] VITALS: BP 131/82
[2017-06-12] MEDS ORDERED: PLAVIX75 MG PO (15:54)
== END 2017-06-12 20:08 | disposition home or self-care (01) | DRG 247 ==
LOC: D.ER 15:47 → D.EDHOLD 17:54 → OBSVTIME 17:54 → D.M2 17:54 → D.EDHOLD 17:54 → D.M2 20:23
PROVIDERS: Family Medicine; Internal Medicine Interventional Cardiology
PROC: 4A023N7 Measurement of Cardiac Sampling and Pressure, Left Heart, Percutaneous Approach (ICD-10-PCS; 2017-06-12)
PROC: B2101ZZ Fluoroscopy of Single Coronary Artery using Low Osmolar Contrast (ICD-10-PCS; 2017-06-12)
PROC: B245ZZ3 Ultrasonography of Left Heart, Intravascular (ICD-10-PCS; 2017-06-12)
PROC: 027034Z Dilation of Coronary Artery, One Artery with Drug-eluting Intraluminal Device, Percutaneous Approach (ICD-10-PCS; principal; 2017-06-12 12:00)
DX: I21.4 Non-ST elevation (NSTEMI) myocardial infarction (principal); I25.119 Atherosclerotic heart disease of native coronary artery with unspecified angina pectoris; I10 Essential (primary) hypertension; E78.5 Hyperlipidemia, unspecified

== ENCOUNTER 2018-05-05 01:55 | Emergency (ER) | payer MEDICARE, OTHER ==
[~2018-05-05] VITALS: Ht 182.9 cm; Wt 90.9 kg
[~2018-05-05 01:55] MED LIST: ARICEPT23 MG PO; BAYER CHEWABLE81 MG PO; COREG6.25 MG PO; EFFEXOR XR150 MG PO; FLOMAX0.4 MG PO; LIPITOR80 MG PO; LISINOPRIL2.5 MG PO; MELATONIN 3 MG1 TAB PO; NORVASC2.5 MG PO; OMEPRAZOLE20 M1 PO; PLAVIX75 MG PO; SINEMET 25-1001 EACH PO; VITAMIN B-12100 MCG PO
[2018-05-05 02:10] VITALS: Ht 182.9 cm; Wt 90.9 kg
[2018-05-05 03:54] VITALS: BP 148/81
== END 2018-05-05 03:49 | disposition home or self-care (01) ==
LOC: D.ER 01:55
DX: L76.22 Postprocedural hemorrhage of skin and subcutaneous tissue following other procedure (principal); G20 Parkinson's disease; I10 Essential (primary) hypertension; F17.200 Nicotine dependence, unspecified, uncomplicated

== ENCOUNTER → 2019-06-22 09:44 | Outpatient (CLI) | payer MEDICARE, OTHER ==
[2018-05-05 02:10] VITALS: BMI 27.2
== END | disposition home or self-care (01) ==
LOC: D.RT 09:44
PROVIDERS: ATTEND Internal Medicine Pulmonary Disease
DX: J44.9 Chronic obstructive pulmonary disease, unspecified (principal)